=== PATIENT | female | born 1950 | race Caucasian/White ===

== ENCOUNTER 2021-09-22 19:00 | Emergency (ER) | payer OTHER ==
[2021-09-22 19:08] VITALS: BP 124/71; PULSE 69; TEMP 97.8; BMI 23.6
== END 2021-09-22 22:08 | disposition home or self-care (01) ==
LOC: FER 19:00
DX: S63.92XA Sprain of unspecified part of left wrist and hand, initial encounter (principal); X50.0XXA Overexertion from strenuous movement or load, initial encounter; W01.0XXA Fall on same level from slipping, tripping and stumbling without subsequent striking against object, initial encounter
CPT/HCPCS: 70450-TC; 73130-TC-LT-FY; 99284-25

== ENCOUNTER 2023-03-14 09:02 | Day surgery (SDC) | payer OTHER ==
[2023-03-09 15:26] VITALS: BMI 23.6
[2023-03-14 10:13] VITALS: RESP 10; TEMP 97.6
[2023-03-14 10:28] VITALS: BP 112/68; PULSE 60
== END 2023-03-14 10:39 | disposition home or self-care (01) ==
LOC: FASU-ENDO 09:02
PROVIDERS: ATTEND Internal Medicine Gastroenterology
PROC: 0DB98ZX Excision of Duodenum, Via Natural or Artificial Opening Endoscopic, Diagnostic (ICD-10-PCS; 2023-03-14)
PROC: 0DB78ZX Excision of Stomach, Pylorus, Via Natural or Artificial Opening Endoscopic, Diagnostic (ICD-10-PCS; 2023-03-14)
PROC: 0DB68ZX Excision of Stomach, Via Natural or Artificial Opening Endoscopic, Diagnostic (ICD-10-PCS; 2023-03-14)
PROC: 0DBN8ZX Excision of Sigmoid Colon, Via Natural or Artificial Opening Endoscopic, Diagnostic (ICD-10-PCS; principal; 2023-03-14 09:39)
DX: Z12.11 Encounter for screening for malignant neoplasm of colon (principal); D12.5 Benign neoplasm of sigmoid colon; K29.50 Unspecified chronic gastritis without bleeding; Z80.0 Family history of malignant neoplasm of digestive organs; R10.13 Epigastric pain
CPT/HCPCS: 88305-TC; 88342-TC

== ENCOUNTER 2023-12-12 07:30 | Emergency (ER) | payer OTHER ==
[2023-12-12 07:47] VITALS: BP 149/69; PULSE 79; RESP 20; TEMP 98.2; BMI 23.8
[2023-12-12] MEDS: DALBAVANCIN HCL 1,500 MG in DEXTROSE 5%-WATER - 500 ML IVPB ONE (08:30)
[2023-12-12 09:04] LABS: HEMATOCRIT 44.7 % (32.4-45.2); HEMOGLOBIN 14.8 G/dL (10.7-15.3); MCH 29.5 pg (25.7-33.7); MCHC 33.1 g/dl (32.0-36.0); MEAN CELL VOLUME 89.3 fl (80-96); MEAN PLT VOLUME 8.2 fl (7.5-11.1); PLATELET COUNT 230.6 10^3/uL (134-434); RBC 5.01 10^6/uL (3.60-5.2); RDW 13.8 % (11.6-15.6); WHITE BLOOD COUNT 6.7 10^3/uL (4.0-10.8)
[2023-12-12 09:31] LABS: ALBUMIN 4.4 g/dl (3.4-5.0); ALK PHOS 49 U/L (45-117); ANION GAP 8 mmol/L (4-13); BILIRUBIN,TOTAL 0.8 mg/dl (0.2-1); CALCIUM 9.8 mg/dl (8.5-10.1); CHLORIDE 104 mmol/L (98-107); CO2 24 mmol/L (21-32); GLUCOSE,RANDOM 96 mg/dl (74-106); POTASSIUM 4.1 mmol/L (3.5-5.1); SGOT/AST 35 U/L (15-37); SGPT/ALT 31 U/L (7-52); SODIUM 136 mmol/L (136-145); TOT PROT 6.7 g/dl (6.4-8.2)
[2023-12-12 10:40] LABS: PLATELET ESTIMATE ADEQUATE
== END 2023-12-12 10:25 | disposition home or self-care (01) ==
LOC: FER 07:30
DX: L03.115 Cellulitis of right lower limb (principal); L25.9 Unspecified contact dermatitis, unspecified cause
CPT/HCPCS: 36415; 80053; 85027; 96365; 99284-25; J0875

== ENCOUNTER 2023-12-15 19:09 | Emergency (ER) | payer OTHER ==
[2023-12-15 19:42] VITALS: BP 120/60; PULSE 59; RESP 16; TEMP 98.4; BMI 23.8
[2023-12-15 19:59] LABS: HEMATOCRIT 44.3 % (32.4-45.2); HEMOGLOBIN 14.6 G/dL (10.7-15.3); MCH 29.7 pg (25.7-33.7); MCHC 32.9 g/dl (32.0-36.0); MEAN CELL VOLUME 90.4 fl (80-96); MEAN PLT VOLUME 7.5 fl (7.5-11.1); PLATELET COUNT 205.5 10^3/uL (134-434); RDW 13.8 % (11.6-15.6); WHITE BLOOD COUNT 5.6 10^3/uL (4.0-10.8)
[2023-12-15] MEDS: CEPHALEXIN MONOHYDRATE 500 MG CAPSULE (UD) PO ONE ×2 (20:20→21:02)
[2023-12-15] MEDS ORDERED: CEPHALEXIN MONOHYDRATE 500 MG CAPSULE (UD) ONE ×2 (20:20→21:02)
[2023-12-15 20:23] LABS: ALBUMIN 4.3 g/dl (3.4-5.0); ALK PHOS 48 U/L (45-117); ANION GAP 7 mmol/L (4-13); BILIRUBIN,TOTAL 0.5 mg/dl (0.2-1); CALCIUM 9.3 mg/dl (8.5-10.1); CHLORIDE 105 mmol/L (98-107); CO2 25 mmol/L (21-32); CREATININE 0.8 mg/dl (0.6-1.3); GLUCOSE,RANDOM 96 mg/dl (74-106); POTASSIUM 3.8 mmol/L (3.5-5.1); SGOT/AST 32 U/L (15-37); SGPT/ALT 31 U/L (7-52); SODIUM 137 mmol/L (136-145); TOT PROT 6.5 g/dl (6.4-8.2)
[2023-12-15] MEDS: CEPHALEXIN 250 MG/5 ML ORAL SUSPENSION PO ONE (20:24)
[2023-12-15 21:01] LABS: ERYTHROCYTE SEDIMENTATION RATE 5 mm/hr (0-30)
== END 2023-12-15 21:10 | disposition home or self-care (01) ==
LOC: FER 19:09
DX: A46 Erysipelas (principal); B36.9 Superficial mycosis, unspecified
CPT/HCPCS: 36415; 80053; 85027; 85651; 86140; 99283-25

== ENCOUNTER 2023-12-20 17:49 | Emergency (ER) | payer OTHER ==
[2023-12-20 18:47] VITALS: BP 153/63; PULSE 73; RESP 16; TEMP 98; BMI 24.5
== END 2023-12-20 19:22 | disposition home or self-care (01) ==
LOC: FER 17:49
DX: L29.9 Pruritus, unspecified (principal); T36.1X5A Adverse effect of cephalosporins and other beta-lactam antibiotics, initial encounter
CPT/HCPCS: 99283-25